=== PATIENT | female | born 1985 | race Caucasian/White ===

== ENCOUNTER 2018-05-08 22:02 | Emergency (ER) | payer MEDICAID ==
[2018-05-08] MEDS ORDERED: KETOROLAC TROMETHAMINE INJ/PF 30 MG/1 ML SDV IV ONE (22:44)
[2018-05-08] MEDS ORDERED: ONDANSETRON HCL INJ/PF 4 MG/2 ML SDV IV ONE (22:44)
--- NOTE | 2018-05-08 22:45 | ER Document Report ---
ED GI/ - General Chief Complaint: Flank Pain Stated Complaint: BACK/ABDOMINAL PAIN Time Seen by Provider: 05/08/18 22:30 Notes: Patient is a 32-year-old female who comes emergency department for chief complaint of left flank pain that started about 5 PM today. She states pain is very sharp, makes her nauseated, she has felt some radiation around to her left side and mid to lower abdomen. She reports some nausea, denies vomiting. She states she was told she has kidney stones, she has never passed a kidney stone. She has had a and tubal ligation, denies any daily medications, denies any medical history otherwise. She took ibuprofen and got in a hot bath before coming in she states this helped. TRAVEL OUTSIDE OF THE [place] IN LAST 30 DAYS: No - Related Data Allergies/Adverse Reactions: dermabond Allergy (Severe, Uncoded 01/27/16 02:30) incision wont stay closed Past Medical History - General Information source: Patient - Social History Smoking Status: Never Smoker Frequency of alcohol use: None Drug Abuse: None Lives with: Family Family History: Reviewed & Not Pertinent Renal/ Medical History: Reports: Hx Kidney Stones Past Surgical History: Reports: Hx Section - x2 - Immunizations Hx Diphtheria, Pertussis, Tetanus Vaccination: Yes Review of Systems - Review of Systems Constitutional: No symptoms reported EENT: No symptoms reported Cardiovascular: No symptoms reported Respiratory: No symptoms reported Gastrointestinal: Abdomen distended Genitourinary: See HPI Female Genitourinary: No symptoms reported Musculoskeletal: No symptoms reported Skin: No symptoms reported Hematologic/Lymphatic: No symptoms reported Neurological/Psychological: No symptoms reported Physical Exam - Vital signs Vitals: Temp Pulse Resp BP Pulse Ox 98.0 F 80 20 146/94 H 96 05/08/18 22:13 05/08/18 22:13 05/08/18 22:13 05/08/18 22:13 05/08/18 22:13 - Notes Notes: GENERAL: Alert, interacts well. No acute distress. HEAD: Normocephalic, atraumatic. EYES: Pupils equal, round, and reactive to light. Extraocular movements intact. ENT: Oral mucosa moist, tongue midline. NECK: Full range of motion. Supple. Trachea midline. LUNGS: Clear to auscultation bilaterally, no wheezes, rales, or rhonchi. No respiratory distress. HEART: Regular rate and rhythm. No murmur ABDOMEN: Soft, non-tender. Non-distended. Bowel sounds present in all 4 quadrants. EXTREMITIES: Moves all 4 extremities spontaneously. No edema, normal radial and dorsalis pedis pulses bilaterally. No cyanosis. BACK: no cervical, thoracic, lumbar midline tenderness. No saddle anesthesia, normal distal neurovascular exam. No CVA tenderness. NEUROLOGICAL: Alert and oriented x3. Normal speech. [cranial nerves II through XII grossly intact]. PSYCH: Normal affect, normal mood. SKIN: Warm, dry, normal turgor. No rashes or lesions noted. Course - Re-evaluation Re-evalutation: After Toradol and Zofran patient symptoms resolved. She had no CVA tenderness on my evaluation. Abdomen is very soft. Vital signs unremarkable. CBC shows mild leukocytosis, nonspecific, chemistry unremarkable, urinalysis does not show hematuria or infection. Ultrasound was performed to evaluate patient trying to avoid radiation because of her benign presentation, this shows very large 11 cm stones bilaterally. No hydronephrosis or suggestion of passing stone or obstruction. Patient provided with copy of ultrasound, medication for symptoms at home, and discussed urology referral. Discussed return precautions. Patient states understanding and agreement. - Vital Signs Vital signs: Temp Pulse Resp BP Pulse Ox 98.4 F 67 16 136/95 H 98 05/09/18 02:02 05/09/18 02:02 05/09/18 02:02 05/09/18 02:02 05/09/18 02:02 - Laboratory Result Diagrams: 05/08/18 23:50 05/08/18 23:50 Laboratory results interpreted by me: 05/08/18 05/08/18 23:50 23:50 WBC 13.7 H RDW 15.3 H Absolute Neutrophils 9.2 H Est GFR (Non-Af Amer) 57 L Discharge - Discharge Clinical Impression: Flank pain Condition: Stable Disposition: HOME, SELF-CARE Additional Instructions: Your ultrasound shows large kidney stones on both sides however it does not show swelling of the kidney, your workup does not show infection or other concerning abnormality. Please follow-up with urology for additional evaluation and management. Call listed referral below to set this up. Return if you worsen including vomiting, fever, severe pain, or any other concerning symptoms. [facility] [address] [place] [address] Prescriptions: Ketorolac Tromethamine [Toradol 10 mg Tablet] 10 mg PO Q8HP PRN #24 tablet PRN Reason: Ondansetron [Zofran Odt 4 mg Tablet] 1 - 2 tab PO Q4H PRN #15 tab.rapdis PRN Reason: For Nausea/Vomiting Referrals: JOEL DALLAS PA-C [Primary Care Provider] - Follow up as needed
[2018-05-08 23:35] LABS: APPEARANCE,URINE SLIGHTLY-CLOUDY; BILIRUBIN,URINE NEGATIVE (NEGATIVE); CALCIUM OXALATE CRYSTALS,URINE MANY /HPF; COLOR,URINE YELLOW; GLUCOSE, URINE NEGATIVE (NEGATIVE); KETONES,URINE NEGATIVE (NEGATIVE); LEUKOCYTE ESTERASE,URINE NEGATIVE (NEGATIVE); NITRITE,URINE NEGATIVE (NEGATIVE); PROTEIN,URINE NEGATIVE (NEGATIVE); URINE SPECIFIC GRAVITY 1.028; UROBILINOGEN,URINE NEGATIVE mg/dL (<2.0)
[2018-05-08] MEDS ORDERED: ONDANSETRON 4 MG TAB.RAPDIS PO ONE (23:53)
[2018-05-09 00:04] LABS: ABSOLUTE BASOPHILS # (AUTO) 0.2 10^3/uL (0.0-0.2); ABSOLUTE EOSINOPHILS # (AUTO) 0.3 10^3/uL (0.0-0.6); ABSOLUTE LYMPHOCYTES (AUTO) 3.2 10^3/uL (0.5-4.7); ABSOLUTE MONOCYTES (AUTO) 0.8 10^3/uL (0.1-1.4); ABSOLUTE NEUT (AUTO) 9.2 10^3/uL (1.7-8.2); BASOPHILS % (AUTO) 1.1 % (0-2); EOSINOPHILS % (AUTO) 2.2 % (0-6); HEMATOCRIT 39.2 % (36.0-47.0); HEMOGLOBIN 13.1 g/dL (12.0-15.5); LYMPHOCYTES % (AUTO) 23.6 % (13-45); MEAN CORPUSCULAR HEMOGLOBIN 27.8 pg (27.0-33.4); MEAN CORPUSCULAR HGB CONC 33.3 g/dL (32.0-36.0); MEAN CORPUSCULAR VOLUME 84 fl (80-97); MONOCYTES % (AUTO) 6.2 % (3-13); PLATELET COUNT 389 10^3/uL (150-450); RED BLOOD COUNT 4.69 10^6/uL (3.72-5.28); RED CELL DISTRIBUTION WIDTH 15.3 % (11.5-14.0); SEGMENTED NEUTROPHILS % (AUTO) 66.9 % (42-78); TOTAL CELLS COUNTED % (AUTO) 100 %; WHITE BLOOD COUNT 13.7 10^3/uL (4.0-10.5)
[2018-05-09 00:23] LABS: ALANINE AMINOTRANSFERASE 29 U/L (9-52); ALKALINE PHOSPHATASE 74 U/L (38-126); ANION GAP 11 (5-19); ASPARTATE AMINO TRANSFERASE 20 U/L (14-36); BILIRUBIN,DIRECT 0.2 mg/dL (0.0-0.4); BILIRUBIN,TOTAL 0.2 mg/dL (0.2-1.3); BLOOD UREA NITROGEN 17 mg/dL (7-20); CALCIUM 9.6 mg/dL (8.4-10.2); CARBON DIOXIDE 24 mmol/L (22-30); CHLORIDE 105 mmol/L (98-107); GLUCOSE 93 mg/dL (75-110); POTASSIUM 4.5 mmol/L (3.6-5.0); SODIUM 140.2 mmol/L (137-145); TOTAL PROTEIN 7.3 g/dL (6.3-8.2)
--- NOTE | 2018-05-09 01:08 | RADIOLOGY REPORT (SQ) ---
EXAM DESCRIPTION: US RETROPERITONEUM LIMITED CLINICAL HISTORY: 32 years Female, flank pain; ? Hydronephrosis COMPARISON: None. TECHNIQUE/LIMITATION: No Limitation. FINDINGS: 11 cm right kidney, 11 cm left kidney, 1.1 cm likely right renal stone, 1.1 cm likely left renal stone, prominent nonspecific left renal pelvis measures 1.4 cm, nondistended urinary bladder. IMPRESSION: No acute findings. Bilateral nephrolithiasis.
[2018-05-09 02:05] VITALS: BP 136/95
== END 2018-05-09 02:05 | disposition home or self-care (01) ==
LOC: ER 22:02
DX: R10.9 Unspecified abdominal pain (principal); M54.9 Dorsalgia, unspecified; Z87.442 Personal history of urinary calculi
CPT/HCPCS: 99284; 96374; 36415; 85025; 81025; 80053; 81001; 76775; S0119; J1885

== ENCOUNTER → 2018-07-28 | Outpatient (CLI) | payer MEDICAID ==
--- NOTE | 2018-07-28 12:15 | RADIOLOGY REPORT (SQ) ---
EXAM DESCRIPTION: KUB/ABDOMEN (SINGLE VIEW) COMPLETED DATE/TIME: 07/28/2018 11:29 am REASON FOR STUDY: CALCULUS OF KIDNEY N20.0 CALCULUS OF KIDNEY COMPARISON: None. NUMBER OF VIEWS: One view. TECHNIQUE: Supine radiographic image of the abdomen acquired. LIMITATIONS: None. FINDINGS: BOWEL GAS PATTERN: Normal bowel gas pattern. No dilated loops. CALCIFICATIONS: On the right side, a 4 mm midpole intrarenal nonobstructive stone is present, marked with an arrow. This is at about the level of the right L1 transverse process. On the left side, a 5 mm calcification is present in the pelvis at the level of the left ischial spin e. This could either represent a left pelvic phlebolith or a distal left ureteral calculus. SOFT TISSUES: No gross mass or suggestion of organomegaly. HARDWARE: None in the abdomen. BONES: No acute fracture. No worrisome bone lesions. OTHER: No other significant finding. IMPRESSION: On the left side, a 5 mm calcification is present in the pelvis at the level of the left ischial spine. This could either represent a left pelvic phlebolith or a distal left ureteral calcu viry. TECHNICAL DOCUMENTATION: JOB ID: [id number] [employer]- All Rights Reserved Reading location - IP/workstation name: [email or web address]
== END ==
LOC: RAD 11:05
PROVIDERS: ATTEND Urology
DX: N20.0 Calculus of kidney (principal)
CPT/HCPCS: 74018